=== PATIENT | male | born 1960 | race Caucasian/White ===

== ENCOUNTER 2018-07-12 21:04 | Inpatient (IN) | payer OTHER ==
[2018-07-12] MEDS ORDERED: NS 1,000 ML IV ONE (21:40)
--- NOTE | 2018-07-12 21:41 | EDPHY ---
H & P Stated Complaint: CP TODAY SINCE 1999/INTERMITTENT CP SINCE THU Time Seen by Provider: 07/12/18 21:41 HPI/ROS: HPI CHIEF COMPLAINT: Chest discomfort. HISTORY OF PRESENT ILLNESS: Very pleasant 57-year-old male, he has a history of hypertension, hyperlipidemia, diabetes, obesity however no history of cardiovascular disease presents emergency room with 1 week of intermittent chest discomfort. He states he often has this 3 times a day. Describes a dull ache sensation substernal left chest radiating down the left arm. Upper left neck at times. Worse when he exerts himself. He did work all weekend so we did not, over the weekend however had multiple times weekend. Also complains of shortness of breath with this chest discomfort. He currently has a dull ache left side of his chest. 02/14. Past Medical History: Hypertension, hyperlipidemia, diabetes, obesity Past Surgical History: No recent surgical history Social History: Denies drugs alcohol tobacco. Works at [employer]. Typically works weekends. Family History: Noncontributory ROS REVIEW OF SYSTEMS: 10 Systems were reviewed and negative with the exception of the elements mentioned in the history of present illness. Exam Constitutional nontoxic no acute distress triage nursing summary reviewed, vital signs reviewed, awake/alert. Eyes normal conjunctivae and sclera, EOMI, PERRLA. HENT normal inspection, atraumatic, moist mucus membranes, no epistaxis, neck supple/ no meningismus, no raccoon eyes. Respiratory clear to auscultation bilaterally, normal breath sounds, no respiratory distress, no wheezing. Cardiovascular rate normal, regular rhythm, no murmur, no edema, distal pulses normal. Gastrointestinal soft, non-tender, no rebound, no guarding, normal bowel sounds, no distension, no pulsatile mass. Genitourinary no CVA tenderness. Musculoskeletal no midline vertebral tenderness, full range of motion, no calf swelling, no tenderness of extremities, no meningismus, good pulses, neurovascularly intact. Skin pink, warm, & dry, no rash, skin atraumatic. Neurologic awake, alert and oriented x 3, AAOx3, moves all 4 extremities equally, motor intact, sensory intact, CN II-XII intact, normal cerebellar, normal vision, normal speech. Psychiatric normal mood/affect. Heme/Lymph/Immune no lymphadenopathy. Differential diagnosis includes but is not limited to: ACS, atypical chest pain , pneumothorax, pneumonia, pulmonary embolism, aortic dissection, congestive heart failure, tumor, musculoskeletal pain, esophageal pain, GERD, peptic ulcer disease, pancreatitis Medical Decision Making: Plan for this patient IV establishment with full quality assurance monitor chassis, full-dose aspirin, nitroglycerin dose to see if this gives him chest pain relief. Chest x -ray, EKG, troponin, rule out acute coronary syndrome. Re-evaluation: EKG interpretation by me on record in [employer] system. Impression time of EKG 4, sinus rhythm rate of a [address] elevation. No acute ischemia. Patient was given 3 doses of nitroglycerin. The patient developed worsening chest pain. The patient had a repeat EKG Repeat EKG time 2214 p.m., sinus tach 105, ST elevation noted to [address] elevation FL. ST depression 1 in aVL. Patient is already received full-dose aspirin. Given the patient has a acute change in his EKG with ST elevation in inferior leads a cardiac alert was called. Plan will be for consultation with Cardiology most likely cardiac rn cardiac cath. ED x-ray chest negative for acute cardiopulmonary disease. 2237: Patient re-evaluated this time chest pain is less. He had a repeat EKG this is his 3rd EKG time of 30 EKG 2234, sinus rhythm rate of 95, still ST elevation inferior leads to 3 AVF concerning for acute FL. Critical Care: Total Critical Care Time Spent Managing this Patient: 65 Minutes. This time was spent Exclusively with this patient. This Care was exclusive of procedures. The Organ System/life at risk was ST elevation FL This Patient was in Critical Condition because STEMI Dr. Dawson to take patient to rn cardiac cath. Source: Patient - Personal History Current Tetanus Diphtheria and Acellular Pertussis (TDAP): No - Medical/Surgical History Hx Asthma: No Hx Chronic Respiratory Disease: No Hx Diabetes: Yes Hx Cardiac Disease: No Hx Renal Disease: No Hx Cirrhosis: No Hx Alcoholism: No Hx HIV/AIDS: No Hx Splenectomy or Spleen Trauma: No Other PMH: DM II (METFORMIN,GLYPIZIDE), HTN, SPINAL STENOSIS (CANE) - Social History Smoking Status: Never smoked Constitutional: Initial Vital Signs Temperature (C) 36.4 C 07/12/18 21:10 Heart Rate 100 07/12/18 21:10 Respiratory Rate 16 07/12/18 21:10 Blood Pressure 162/99 H 07/12/18 21:10 O2 Sat (%) 96 07/12/18 21:10 O2 Delivery Mode Room Air Allergies/Adverse Reactions: tetanus and diphtheria toxoids Allergy (Verified 07/12/18 21:13) Home Medications: Medication Instructions Recorded Blood Pressure Pill 07/12/18 Cholesterol Pill 07/12/18 Metformin HCl 07/12/18 glipiZIDE 07/12/18 Medical Decision Making - Diagnostics Imaging Results: Imaging Impressions Chest X-Ray 07/12/18 21:41 Impression: No definite or significant localizing abnormalities. - Data Points Laboratory Results: Laboratory Results 07/12/18 21:25 07/12/18 21:25 07/12/18 07/12/18 07/12/18 21:51 21:25 21:25 WBC RBC Hgb Hct MCV MCH MCHC RDW Plt Count MPV Neut % (Auto) Lymph % (Auto) [place] % (Auto) Eos % (Auto) Baso % (Auto) Nucleat RBC Rel Count Absolute Neuts (auto) Absolute Lymphs (auto) Absolute Monos (auto) Absolute Eos (auto) Absolute Basos (auto) Absolute Nucleated RBC Immature Gran % Immature Gran # PT 13.4 SEC SEC (12.0-15.0) INR 1.00 (0.83-1.16) APTT 28.6 SEC SEC (23.0-38.0) D-Dimer 0.76 ug/mLFEU H ug/mLFEU (0.00-0.50) Sodium 135 mEq/L mEq/L (135-145) Potassium 4.2 mEq/L mEq/L (3.3-5.0) Chloride 101 mEq/L mEq/L (97-110) Carbon Dioxide 21 mEq/l L mEq/l (22-31) Anion Gap 13 mEq/L mEq/L (6-14) BUN 15 mg/dL mg/dL (7-23) Creatinine 0.7 mg/dL mg/dL (0.7-1.3) Estimated GFR > 60 Glucose 377 mg/dL H mg/dL (70-100) Calcium 9.8 mg/dL mg/dL (8.5-10.4) Magnesium 1.6 mg/dL mg/dL (1.6-2.3) Total Bilirubin 0.6 mg/dL mg/dL (0.1-1.4) Conjugated Bilirubin 0.2 mg/dL mg/dL (0.0-0.5) Unconjugated Bilirubin 0.4 mg/dL mg/dL (0.0-1.1) AST 19 IU/L IU/L (17-59) ALT 18 IU/L L IU/L (21-72) Alkaline Phosphatase 105 IU/L IU/L (38-126) POC Troponin I 0.00 ng/mL ng/mL (0.00-0.08) NT-Pro-B Natriuret Pep 135 pg/mL H pg/mL (0-125) Total Protein 7.4 g/dL g/dL (6.3-8.2) Albumin 4.2 g/dL g/dL (3.5-5.0) 07/12/18 21:25 WBC 9.15 10^3/uL 10^3/uL (3.80-9.50) RBC 4.78 10^6/uL 10^6/uL (4.40-6.38) Hgb 14.5 g/dL g/dL (13.7-17.5) Hct 41.0 % % (40.0-51.0) MCV 85.8 fL fL (81.5-99.8) MCH 30.3 pg pg (27.9-34.1) MCHC 35.4 g/dL g/dL (32.4-36.7) RDW 12.4 % % (11.5-15.2) Plt Count 349 10^3/uL 10^3/uL (150-400) MPV 9.6 fL fL (8.7-11.7) Neut % (Auto) 63.6 % % (39.3-74.2) Lymph % (Auto) 24.2 % % (15.0-45.0) [place] % (Auto) 8.6 % % (4.5-13.0) Eos % (Auto) 2.4 % % (0.6-7.6) Baso % (Auto) 1.0 % % (0.3-1.7) Nucleat RBC Rel Count 0.0 % % (0.0-0.2) Absolute Neuts (auto) 5.82 10^3/uL 10^3/uL (1.70-6.50) Absolute Lymphs (auto) 2.21 10^3/uL 10^3/uL (1.00-3.00) Absolute Monos (auto) 0.79 10^3/uL 10^3/uL (0.30-0.80) Absolute Eos (auto) 0.22 10^3/uL 10^3/uL (0.03-0.40) Absolute Basos (auto) 0.09 10^3/uL 10^3/uL (0.02-0.10) Absolute Nucleated RBC 0.00 10^3/uL 10^3/uL (0-0.01) Immature Gran % 0.2 % % (0.0-1.1) Immature Gran # 0.02 10^3/uL 10^3/uL (0.00-0.10) PT INR APTT D-Dimer Sodium Potassium Chloride Carbon Dioxide Anion Gap BUN Creatinine Estimated GFR Glucose Calcium Magnesium Total Bilirubin Conjugated Bilirubin Unconjugated Bilirubin AST ALT Alkaline Phosphatase POC Troponin I NT-Pro-B Natriuret Pep Total Protein Albumin Medications Given: Morphine Sulfate (Morphine) 2 mg IVP Q1HR PRN PRN Reason: Pain, Severe Unable to Take PO Stop: 07/23/18 00:11 Last Admin: 07/13/18 02:52 Dose: 2 mg Discontinued Medications Aspirin (Aspirin) 324 mg PO EDNOW ONE Stop: 07/12/18 21:48 Last Admin: 07/12/18 21:50 Dose: 324 mg Clopidogrel Bisulfate (Plavix) 600 mg PO ONCE ONE Stop: 07/13/18 00:13 Last Admin: 07/13/18 00:57 Dose: Not Given Sodium Chloride (Ns) 1,000 mls @ 0 mls/hr IV EDNOW ONE; Wide Open PRN Reason: Protocol Stop: 07/12/18 21:41 Last Admin: 07/12/18 21:50 Dose: 1,000 mls Nitroglycerin (Nitrostat) 0.4 mg SL Q5M PRN PRN Reason: Chest Pain Last Admin: 07/12/18 22:12 Dose: 0.4 mg Point of Care Test Results: Chemistry 07/12/18 21:51 POC Troponin I 0.00 ng/mL ng/mL (0.00-0.08) Departure - Departure Disposition: [facility] Inpatient Acute Clinical Impression: Chest pain Qualifiers: Chest pain type: unspecified Qualified Code(s): R07.9 - Chest pain, unspecified STEMI (ST elevation myocardial infarction) Qualifiers: Involved coronary artery: unspecified coronary artery Qualified Code(s): I21.3 - ST elevation (STEMI) myocardial infarction of unspecified site Condition: Critical
[2018-07-12] MEDS ORDERED: ASPIRIN 81 MG CHEWABLE TAB PO ONE (21:47)
[2018-07-12 21:48] LABS: PLATELET COUNT 349 10^3/uL (150-400)
[2018-07-12] MEDS: NITROGLYCERIN 0.4 MG BTL SL PRN ×3 (21:52→22:12)
[2018-07-12 22:03] LABS: PROTIME(PATIENT) 13.4 SEC (12.0-15.0)
[2018-07-12] MEDS ORDERED: LIDOCAINE 1% 300 MG/30 ML SDV ONE (22:43)
[2018-07-12] MEDS ORDERED: MIDAZOLAM 2 MG/2 ML VIAL ONE (22:44)
[2018-07-12] MEDS ORDERED: fentaNYL 100 MCG/2 ML INJ ONE (22:44)
[2018-07-12] MEDS ORDERED: IOPAMIDOL (ISOVUE-370) 150 ML BTL IV ONE ×2 (22:44→23:35)
[2018-07-12] MEDS ORDERED: BIVALIRUDIN 250 MG/5 ML VIAL IV ONE (22:45)
--- NOTE | 2018-07-12 22:48 | CPEKG ---
Test Reason : OPEN Blood Pressure : / mmHG Vent. Rate : 097 BPM Atrial Rate : 097 BPM P-R Int : 169 ms QRS Dur : 096 ms QT Int : 351 ms P-R-T Axes : 039 024 039 degrees QTc Int : 446 ms Sinus rhythm Confirmed by Guillermo Mike ([id number]) on 07/12/2018 10:48:19 PM Referred By: Confirmed By:Guillermo Mike
[2018-07-12] MEDS ORDERED: ADENOSINE 6 MG/2 ML VIAL ONE ×2 (23:42→23:43)
[2018-07-13] MEDS ORDERED: CLOPIDOGREL BISULFATE 75 MG TAB ONE (00:06)
--- NOTE | 2018-07-13 00:07 | GHP ---
DATE OF ADMISSION: 07/12/2018 CHIEF COMPLAINT: We have been asked by Dr. Aguilar to evaluate the patient with a chief complaint of chest pain. HISTORY OF PRESENT ILLNESS: The patient is a 57-year-old gentleman with risk factors including age, hypertension, hyperlipidemia, and diabetes mellitus, who presents with a chief complaint of chest pain. The patient was in his usual state of health until approximately 1 week prior to admission when he began to experience intermittent episodes of chest pain. The chest pain was described as an ache in the center of his chest extending into his left arm and left neck. The chest discomfort would come on, last approximately 15 minutes, and then resolve. This last weekend on Thursday, the patient had a particularly severe episode, and he was thinking about coming to the emergency department for further evaluation; however, it resolved and he did not come in. On the evening of admission, the patient had another severe episode of the chest discomfort, prompting him to seek further evaluation. In the emergency department, he had an EKG performed demonstrating ST-segment elevation in the inferior leads. His initial troponin was within normal limits. We are consulted to help in the further management this patient. PAST MEDICAL HISTORY: 1. Hypertension. 2. Hyperlipidemia. 3. Diabetes. 4. Obesity. 5. Spinal stenosis. MEDICATIONS: Please see medicine reconciliation form. ALLERGIES: Tetanus toxoid. SOCIAL HISTORY: The patient works at [employer]. He does not smoke. He denies problems with alcohol. FAMILY HISTORY: Noncontributory. REVIEW OF SYSTEMS: 10-point review of systems is negative except as noted in HPI. PHYSICAL EXAMINATION: GENERAL: The patient is resting in bed. He appears to be in mild distress. VITALS: Temperature is afebrile. Pulse is 107, blood pressure 148/95, respiratory rate 16, SaO2 96% on 2 L nasal cannula. HEENT: Normocephalic, atraumatic. Extraocular muscles intact. NECK: No JVD. LUNGS: Clear to auscultation. CARDIOVASCULAR: Regular rate and rhythm. S1, S2. No murmurs, rubs, or gallops. ABDOMEN: Soft, nontender. Normoactive bowel sounds. EXTREMITIES: No clubbing, cyanosis, or edema. NEURO: Patient is awake, alert, and oriented x3. LABORATORY: White blood cell count 9.15, hemoglobin 14.5, hematocrit 41.0, platelet count 349. INR 1.0. Sodium 135, potassium 4.2, chloride 101, CO2 21, BUN 15, creatinine 0.7. ALT is low at 18. Glucose is elevated at 377. Point of care troponin within normal limits. DIAGNOSTIC DATA: EKG demonstrates sinus rhythm with inferior ST-segment elevation. ADDENDUM: Patient initially presented to the emergency department as an acute coronary syndrome. His initial EKG demonstrated no acute ST-segment elevation. His initial point of care troponin was within normal limits. Patient developed progressive chest pain while in the emergency department. He had a 2nd EKG performed at 2212. The 2nd EKG was notable for inferior ST-segment elevation myocardial infarction and cardiac alert activated. ASSESSMENT/PLAN: Patient is a 57-year-old gentleman with multiple cardiac risk factors, who presents with acute inferior ST-segment elevation myocardial infarction. Reviewed risks and benefits of cardiac catheterization with the patient. We will arrange to have this performed emergently. /[id number]/MODL and [id number]/MODL [facility]
[2018-07-13] MEDS ORDERED: NITROGLYCERIN 0.4 MG BTL SL PRN (00:12)
[2018-07-13] MEDS ORDERED: ATROPINE SULFATE 1 MG/10 ML SYR IVP PRN (00:12)
[2018-07-13] MEDS ORDERED: CLOPIDOGREL BISULFATE 75 MG TAB PO ONE (00:12)
[2018-07-13] MEDS ORDERED: TEMAZEPAM 15 MG CAP PO PRN (00:12)
[2018-07-13] MEDS ORDERED: ONDANSETRON 4 MG/2 ML VIAL IVP PRN (00:12)
[2018-07-13] MEDS ORDERED: LORazepam 2 MG/ML INJ IVP PRN (00:12)
[2018-07-13] MEDS ORDERED: D50W 25 GM/50 ML SYR IVP PRN (00:16)
[2018-07-13 05:32] LABS: PLATELET COUNT 293 10^3/uL (150-400)
--- NOTE | 2018-07-13 05:48 | CPEKG ---
Test Reason : OPEN Blood Pressure : / mmHG Vent. Rate : 105 BPM Atrial Rate : 106 BPM P-R Int : 169 ms QRS Dur : 096 ms QT Int : 334 ms P-R-T Axes : 046 054 037 degrees QTc Int : 442 ms Sinus tachycardia Inferior infarct, acute (RCA) Lateral leads are also involved Probable RV involvement, suggest recording right precordial leads Confirmed by Sky Aguilar ([id number]) on 07/13/2018 5:47:40 AM Referred By: Confirmed By:Sky Aguilar
--- NOTE | 2018-07-13 05:48 | CPEKG ---
Test Reason : OPEN Blood Pressure : / mmHG Vent. Rate : 095 BPM Atrial Rate : 094 BPM P-R Int : 171 ms QRS Dur : 093 ms QT Int : 346 ms P-R-T Axes : 051 044 025 degrees QTc Int : [address] elevation, consider inferior injury Confirmed by Sky Aguilar ([id number]) on 07/13/2018 5:47:40 AM Referred By: Confirmed By:Sky Aguilar
[2018-07-13] MEDS: INSULIN REGULAR HUMAN 100 UNIT/ML UNIT SC SCH ×4 (07:52→21:11)
--- NOTE | 2018-07-13 08:14 | CPIP ---
DATE OF PROCEDURE: 07/12/2018 PROCEDURE: 1. Coronary angiography. 2. Left ventriculography. 3. Stenting of right coronary artery with Synergy drug-eluting stent. INDICATION: Acute inferior ST-segment elevation myocardial infarction. ACCESS: Patient was prepped and draped in sterile fashion. 1% lidocaine was used to anesthetize the right inguinal region. A 6-Thai introducer sheath was placed selectively into the right common fe moral artery via modified Seldinger technique. CORONARY ANGIOGRAPHY: A 6-Thai JL4 was advanced to the left main coronary artery and images obtain ed. The left main coronary artery bifurcated into an LAD and circumflex coronary arteries. The left main coronary artery appeared normal. The left anterior descending coronary artery had mild diffuse disease throughout. In the mid vessel, there was a long segmental 50% stenosis present. The first diagonal artery had a segmental 80% stenosis present. The circumflex coronary artery is a moderate-s ized vessel, but was nondominant. The circumflex coronary artery gave rise to 2 prominent OM branche s. The circumflex coronary artery had mild diffuse disease throughout. The first OM branch, which w as the dominant OM branch had a proximal segmental 40% stenosis present. 6-Thai JR4 was advanced t o the right coronary artery and images obtained. The right coronary artery was dominant. The right coronary artery had mild diffuse disease throughout. In the proximal vessel, there was a segmental 2 5% stenosis present, and in the distal vessel just after the takeoff of the PDA, there was a discrete 90% stenosis present. LEFT VENTRICULOGRAPHY: A 6-Thai pigtail catheter was advanced in the left ventricle and images obt ained. The left ventricle was normal in size and had normal systolic function. The estimated ejecti on fraction was 65%. PERCUTANEOUS CORONARY INTERVENTION OF THE RIGHT CORONARY ARTERY: A 6-Thai JR4 catheter was advance d to the right coronary artery and images obtained. Angiography confirmed the presence of a high-gra de lesion involving the distal right coronary artery. A Luge wire was placed in the distal vessel an d position verified by angiography. A 2.5 x 15 Emerge balloon was used to pre-dilate the lesion, fol lowup angiography demonstrated significant residual stenosis. A 3.0 x 20 Synergy drug-eluting stent was then placed across the lesion and deployed, followup angiography demonstrated TAYLOR-3 flow, no res idual stenosis. COMPLICATIONS: None. CONCLUSIONS: 1. 2-vessel coronary artery disease involving the right coronary artery and left anterior descending coronary artery. 2. Normal left ventricular size and systolic function. 3. Status post successful percutaneous coronary intervention of the right coronary artery using a Jaime powell drug-eluting stent. /[id number]/MODL
--- NOTE | 2018-07-13 08:43 | SOAPPROG ---
PRADIP Progress Note Assessment/Plan: 1. IMI - Pt presented with an ACS. Initial EKG demonstrated no acute ST or T changes. While in the ER he developed progressive symptoms and had a repeat EKG performed demonstrating inferior ST segment elevation. He was taken to the cardiac catheterization laboratory were he was found to have a 90 to 95% stenosis of her RCA. Pt was treated with PCI using Synergy EDMAR. LVEF wnl. Pt has had low level gradually improving chest pain post procedure. No significant arrhythmias on telemetry monitoring. No CHF. --> Continue asa, plavix, coreg, lisinopril, and lipitor --> Cycle cardiac biomarkers post procedure given low level on going chest pain --> Will obtain stress test as out patient to evaluate LAD and diagonal disease. 2. HTN - adequately controlled --> Continue coreg and lisinopril 3. Hyperlipidemia - LDL = 75 --> Lipitor 40 mg daily 4. DM - Pt has a history of DM. His glucose was not well controlled on admission. Pt started on insulin SS. Will consult Dr. Sam to help with management Subjective: Pt presented with with an ACS transitioning to an inferior STEMI. He was treated with PCI of RCA. Pt has noted low level gradually improving chest pain post procedure ( EKG with resolutions of inferior ST elevation) No orthopnea or PND Objective: Vital Signs Temp Pulse Resp BP Pulse Ox 36.4 C 76 16 118/64 93 07/13/18 07:52 07/13/18 07:52 07/13/18 07:52 07/13/18 07:52 07/13/18 07:52 Laboratory Results 07/13/18 05:03 07/13/18 05:00 07/12/18 07/13/18 07/14/18 05:59 05:59 05:59 Intake Total 500 Output Total 700 Balance -200 PT 13.4 SEC (12.0-15.0) 07/12/18 21:25 INR 1.00 (0.83-1.16) 07/12/18 21:25 Physical Exam - Physical Exam General Appearance: alert, no apparent distress Respiratory: lungs clear Cardiac/Chest: regular rate, rhythm Abdomen: non-tender, soft Skin: normal color Extremities: other (No hematoma. No echymosis. 2+ DP and PT on R), No pedal edema Neuro/Psych: alert, oriented x 3 ICD10 Worksheet Patient Problems: Problems Problem Status Onset Chest pain Acute STEMI (ST elevation myocardial infarction) Acute
[2018-07-13] MEDS: CARVEDILOL 3.125 MG TAB PO SCH ×2 (08:55→18:24)
[2018-07-13] MEDS: ASPIRIN EC 325 MG TAB PO SCH (08:55)
[2018-07-13] MEDS: ATORVASTATIN CALCIUM 40 MG TAB PO SCH (08:55)
[2018-07-13] MEDS: CLOPIDOGREL BISULFATE 75 MG TAB PO SCH (08:55)
[2018-07-13] MEDS: LISINOPRIL 5 MG TAB PO SCH (08:55)
--- NOTE | 2018-07-13 09:20 | ASMTCMCOM ---
CM Note CM Note Notes: 57yo male admitted for CP, STEMI. He has a Hx of HTN, HLD, DM-2, Obesity, Spinal stenosis. He went to the photo lab specialist found to have stenosis of his RCA-treated with PCI. May not have discharge needs. Date Signed: 07/13/2018 09:19 AM Electronically Signed By:Kerry Hayes LCSW
[2018-07-13 09:27] LABS: CREATINE KINASE 737 IU/L (0-224)
--- NOTE | 2018-07-13 09:27 | PDMN ---
Medical Necessity Medical necessity: MCG: M230 KS: 2 days: acute inferior ST-segment elevation KS - OP: angio, LVR, stenting of RCA with Synergy EDMAR
--- NOTE | 2018-07-13 11:50 | PDHOSCONS ---
History and Physical - Chief Complaint Hyperglycemia - History of Present Illness Antwan Gonzales is a 57 yo M with a PMHx of T2DM, HTN, HLD, who presented to [facility] for chest pain, STEMI, s/p PCI to LAD and RCA. Hospitalist consulted for diabetes management. Pt reports he was diagnosed with T2DM in 2004. He states when he checks his blood sugar at home it is usually in the 300's. He takes Metformin, Glipizide, and one other oral diabetic medication (recently prescribed by PCP). He reports most recent A1c was 11. He states he has had > 50 lb weight loss in past year with polyphagia, polydipsia, and polyuria. History Information - Allergies/Home Medication List Allergies/Adverse Reactions: tetanus and diphtheria toxoids Allergy (Verified 07/12/18 21:13) Home Medications: Atorvastatin Calcium [Lipitor 10 mg (*)] 10 mg PO DAILY18 07/12/18 [Last Taken 07/12/18] Lisinopril [Zestril 20 mg (*)] 20 mg PO DAILY18 07/12/18 [Last Taken 07/12/18] glipiZIDE [Glucotrol] 10 mg PO BID 07/12/18 [Last Taken 07/11/18] Acetaminophen [Tylenol 325mg (*)] 325 mg PO DAILY PRN 07/13/18 [Last Taken Unknown] Aleve Back And Muscle 1 each PO DAILY PRN 07/13/18 [Last Taken Unknown] Methocarbamol [Robaxin 500 mg (*)] 500 mg PO Q6HRS PRN 07/13/18 [Last Taken 01/22 21:00] Naproxen Sodium [Aleve 220 MG (*)] 660 mg PO DAILY PRN 07/13/18 [Last Taken Unknown] Tamsulosin HCl [Flomax 0.4 MG (*)] 0.8 mg PO DAILY18 07/13/18 [Last Taken ] I have personally reviewed and updated: family history, medical history, social history, surgical history - Past Medical History coronary artery disease, diabetes type 2, hypertension, hyperlipidemia - Surgical History Reports: no pertinent surgical hx - Family History Positive for: diabetes type II - Social History Smoking Status: Never smoked Review of Systems Review of Systems: ROS: 10pt was reviewed & negative except for what was stated in HPI & below Physical Exam Physical Exam: Temp Pulse Resp BP Pulse Ox 36.7 C 82 18 124/80 H 95 07/13/18 11:30 07/13/18 11:30 07/13/18 11:30 07/13/18 11:30 07/13/18 11:30 O2 (L/minute) 2 Constitutional: no apparent distress Eyes: PERRL Ears, Nose, Mouth, Throat: moist mucous membranes Cardiovascular: regular rate and rhythym Respiratory: no respiratory distress Gastrointestinal: soft, non-tender abdomen Genitourinary: No tovar in urethra Skin: warm Musculoskeletal: full muscle strength Neurologic: AAOx3 Psychiatric: interacting appropriately Lab Data & Imaging Review 07/13/18 05:03 07/13/18 05:00 WBC 11.55 10^3/uL (3.80-9.50) H 07/13/18 05:03 RBC 4.29 10^6/uL (4.40-6.38) L 07/13/18 05:03 Hgb 13.0 g/dL (13.7-17.5) L 07/13/18 05:03 Hct 37.7 % (40.0-51.0) L 07/13/18 05:03 MCV 87.9 fL (81.5-99.8) 07/13/18 05:03 MCH 30.3 pg (27.9-34.1) 07/13/18 05:03 MCHC 34.5 g/dL (32.4-36.7) 07/13/18 05:03 RDW 12.6 % (11.5-15.2) 07/13/18 05:03 Plt Count 293 10^3/uL (150-400) 07/13/18 05:03 MPV 9.7 fL (8.7-11.7) 07/13/18 05:03 Neut % (Auto) 70.2 % (39.3-74.2) 07/13/18 05:03 Lymph % (Auto) 17.6 % (15.0-45.0) 07/13/18 05:03 Grainger % (Auto) 9.3 % (4.5-13.0) 07/13/18 05:03 Eos % (Auto) 2.0 % (0.6-7.6) 07/13/18 05:03 Baso % (Auto) 0.6 % (0.3-1.7) 07/13/18 05:03 Nucleat RBC Rel Count 0.0 % (0.0-0.2) 07/13/18 05:03 Absolute Neuts (auto) 8.12 10^3/uL (1.70-6.50) H 07/13/18 05:03 Absolute Lymphs (auto) 2.03 10^3/uL (1.00-3.00) 07/13/18 05:03 Absolute Monos (auto) 1.07 10^3/uL (0.30-0.80) H 07/13/18 05:03 Absolute Eos (auto) 0.23 10^3/uL (0.03-0.40) 07/13/18 05:03 Absolute Basos (auto) 0.07 10^3/uL (0.02-0.10) 07/13/18 05:03 Absolute Nucleated RBC 0.00 10^3/uL (0-0.01) 07/13/18 05:03 Immature Gran % 0.3 % (0.0-1.1) 07/13/18 05:03 Immature Gran # 0.03 10^3/uL (0.00-0.10) 07/13/18 05:03 PT 13.4 SEC (12.0-15.0) 07/12/18 21:25 INR 1.00 (0.83-1.16) 07/12/18 21:25 APTT 28.6 SEC (23.0-38.0) 07/12/18 21:25 D-Dimer 0.76 ug/mLFEU (0.00-0.50) H 07/12/18 21:25 Sodium 135 mEq/L (135-145) 07/13/18 05:00 Potassium 4.0 mEq/L (3.3-5.0) 07/13/18 05:00 Chloride 106 mEq/L (97-110) 07/13/18 05:00 Carbon Dioxide 22 mEq/l (22-31) 07/13/18 05:00 Anion Gap 7 mEq/L (6-14) 07/13/18 05:00 BUN 11 mg/dL (7-23) 07/13/18 05:00 Creatinine 0.5 mg/dL (0.7-1.3) L 07/13/18 05:00 Estimated GFR > 60 07/13/18 05:00 Glucose 270 mg/dL (70-100) H 07/13/18 05:00 POC Glucose 228 mg/dL (70-100) H 07/13/18 07:38 Calcium 8.8 mg/dL (8.5-10.4) 07/13/18 05:00 Magnesium 1.6 mg/dL (1.6-2.3) 07/12/18 21:25 Total Bilirubin 0.6 mg/dL (0.1-1.4) 07/13/18 05:00 Conjugated Bilirubin 0.1 mg/dL (0.0-0.5) 07/13/18 05:00 Unconjugated Bilirubin 0.5 mg/dL (0.0-1.1) 07/13/18 05:00 AST 93 IU/L (17-59) H 07/13/18 05:00 ALT 32 IU/L (21-72) 07/13/18 05:00 Alkaline Phosphatase 85 IU/L (38-126) 07/13/18 05:00 Creatine Kinase 737 IU/L (0-224) H 07/13/18 09:00 CK-MB (CK-2) Fraction 20.00 ng/mL (0.00-4.55) H 07/13/18 09:00 CK-MB (CK-2) % 2.7 % (0.0-4.0) 07/13/18 09:00 Creatine Kinase Interp NEGATIVE (NEGATIVE) 07/13/18 09:00 POC Troponin I 0.00 ng/mL (0.00-0.08) 07/12/18 21:51 Troponin I 23.400 ng/mL (0.000-0.034) H 07/13/18 09:00 NT-Pro-B Natriuret Pep 135 pg/mL (0-125) H 07/12/18 21:25 Total Protein 6.5 g/dL (6.3-8.2) 07/13/18 05:00 Albumin 3.5 g/dL (3.5-5.0) 07/13/18 05:00 Triglycerides 121 mg/dL (40-150) 07/13/18 05:00 Cholesterol 130 mg/dL (140-220) L 07/13/18 05:00 Cholesterol Risk Factr 0.8 (0.2-1.0) 07/13/18 05:00 LDL Cholesterol, Calc 75 mg/dL (80-100) L 07/13/18 05:00 LDL Risk Factor 0.8 (0.2-1.0) 07/13/18 05:00 VLDL Cholesterol 24 mg/dL (8-25) 07/13/18 05:00 Non-HDL Cholesterol 99 mg/dL (90-129) 07/13/18 05:00 HDL Cholesterol 31 mg/dL (40-65) L 07/13/18 05:00 LDL/HDL Ratio 2.41 RATIO (1.00-3.64) 07/13/18 05:00 Cholesterol/HDL Ratio 4.19 RATIO (1.00-4.97) 07/13/18 05:00 Assessment & Plan Assessment: Uncontrolled T2DM - Patient's BG in 200's since admission - Reports most recent A1c 11, managed by PCP - On Metformin 2,000 mg qd, Glipizide 10 mg BID, and other new oral medication - Placed on SSI while in hospital - Patient resistant to being place on insulin due to family hx of insulin related deaths - Continue SSI for now, hold Metformin while IP - Patient's daughter is to bring in new oral antihyperglycemic - If patient agrees, would start long acting insulin, Lantus 0.2 units/kg, ~18 units qd - Plan would be to increase by 2-4 units periodically (approx q3 days) if FBG is >130, this should be done as OP and managed by PCP - In the meantime would recommend restarting home Glipizide 10 mg BID - Continue to monitor BG, will order A1c - Discussed risks of chronic uncontrolled DM, including renal failure, blindness , neuropathy, CAD - Patient to followup with PCP for further management of DM - Continue ASA, Statin as below Inferior ST segment elevation. -S/p [facility] where he was found to have a 90 to 95% stenosis of her RCA. - Pt was treated with PCI using Synergy EDMAR. LVEF - Continue asa, plavix, coreg, lisinopril, and lipitor - Plan per cardiology to obtain stress test as out patient to evaluate LAD and diagonal disease. HTN - Well controlled - Continue coreg and lisinopril Hyperlipidemia - Continue Lipitor 40 mg daily Thank you for the consult. Please contact with any questions or concerns. We will continue to follow patient throughout this hospitalization.
[2018-07-13] MEDS ORDERED: KETOROLAC 15 MG/1 ML SDV IVP ONE (12:30)
[2018-07-13 16:00] LABS: CREATINE KINASE 546 IU/L (0-224)
[2018-07-13] MEDS: glipiZIDE 10 MG TAB PO SCH (21:11)
[2018-07-13] MEDS ORDERED: ACETAMINOPHEN 325 MG TAB PO PRN (21:30)
[2018-07-14 07:48] VITALS: BP 134/82
[2018-07-14] MEDS: CLOPIDOGREL BISULFATE 75 MG TAB PO SCH (08:15)
[2018-07-14] MEDS: CARVEDILOL 3.125 MG TAB PO SCH (08:15)
[2018-07-14] MEDS: LISINOPRIL 5 MG TAB PO SCH (08:15)
[2018-07-14] MEDS: INSULIN REGULAR HUMAN 100 UNIT/ML UNIT SC SCH (08:15)
[2018-07-14] MEDS: glipiZIDE 10 MG TAB PO SCH (08:15)
[2018-07-14] MEDS: ATORVASTATIN CALCIUM 40 MG TAB PO SCH (08:15)
[2018-07-14] MEDS: ASPIRIN EC 325 MG TAB PO SCH (08:16)
[2018-07-14] MEDS ORDERED: CARVEDILOL 3.125 MG TAB PO ONE (09:44)
--- NOTE | 2018-07-14 10:23 | ASMTLACE ---
LACE Length of stay for Answers: 1 day current admission Acuity / Level of Answers: Yes Care: Did the patient have an inpatient admission? Comorbidities - select Answers: Diabetes (uncontrolled or all that apply controlled) Previous myocardial infarction Other Notes: HTN; HLD; Spinal stenos is # of Emergency department Answers: 1-2 visits in the last 6 months Score: 8 Date Signed: 07/14/2018 10:22 AM Electronically Signed By:Teri Baum RN
--- NOTE | 2018-07-14 10:26 | ASDISCHSUM ---
Discharge Information Plan Status:Home with No Needs Medically Cleared to Leave:07/13/2018 Discharge Date:07/13/2018 CM D/C Disposition:Home, Routine, Self-Care ADT D/C Disposition:Home, Routine, Self-Care Projected Discharge Date:07/13/2018 Transportation at D/C: Discharge Delay Reason: Follow-Up Date:07/13/2018 Discharge Slot: Final Diagnosis:CP, STEMI Placement Information Patient Contact Information Contact Name:YVES Relationship: Address:[address] Work Phone: City:[place] Alternate Phone: State/Zip Code:[place] [address] Email: Financial Information Financial Class:HMO and PPO Plans Primary Plan Desc:[facility] Primary Plan Number:[id number] Secondary Plan Desc: Secondary Plan Number: Assessment Information LACE LACE Length of stay for Answers: 1 day current admission Acuity / Level of Answers: Yes Care: Did the patient have an inpatient admission? Comorbidities - select Answers: Diabetes (uncontrolled or all that apply controlled) Previous myocardial infarction Other Notes: HTN; HLD; Spinal stenos is # of Emergency department Answers: 1-2 visits in the last 6 months Score: 8 Date Signed: 07/14/2018 10:22 AM Electronically Signed By:Teri Baum RN [facility] CM Progress Note CM Note CM Note Notes: 57yo male admitted for CP, STEMI. He has a Hx of HTN, HLD, DM-2, Obesity, Spinal stenosis. He went to the cardiac cath lab technologist found to have stenosis of his RCA-treated with PCI. May not have discharge needs. Date Signed: 07/13/2018 09:19 AM Electronically Signed By:Kerry Hayes LCSW Case Management Discharge Plan Note Case Management Discharge Discharge Order Complete? Answers: Yes Patient to Obtain Answers: via Family Medications Discharge Comments Notes: 07/14/2018 Case Management Note Pt to discharge home with family support and follow up as directed. Date Signed: 07/14/2018 10:25 AM Electronically Signed By:Teri Baum RN Intervention Information
--- NOTE | 2018-07-14 11:37 | HOSPPROG ---
Hospitalist Progress Note Assessment/Plan: Uncontrolled T2DM - Patient's BG in 200's since admission - Reports most recent A1c 11, managed by PCP, repeat A1c 12.9 - On Metformin 2,000 mg qd, Glipizide 10 mg BID, and other new oral medication - Placed on SSI while in hospital - Patient resistant to being place on insulin due to family hx of insulin related deaths - Continue SSI for now, hold Metformin while IP - Patient would like to defer initiation of long acting insulin, (I recommend Lantus 0.2 units/kg, ~18 units qd as initial dose), he would like to f/u with PCP to discuss this further - In the meantime would recommend restarting home Glipizide 10 mg BID while IP, restart Metformin 1000 mg BID upon discharge - Continue to monitor BG - Discussed risks of chronic uncontrolled DM, including renal failure, blindness , neuropathy, CAD - Patient to followup with PCP for further management of DM - Continue ASA, Statin as below Inferior ST segment elevation. -S/p [facility] where he was found to have a 90 to 95% stenosis of her RCA. - Pt was treated with PCI using Synergy EDMAR. LVEF - Continue asa, plavix, coreg, lisinopril, and lipitor - Plan per cardiology to obtain stress test as out patient to evaluate LAD and diagonal disease. HTN - Well controlled - Continue coreg and lisinopril Hyperlipidemia - Continue Lipitor 40 mg daily Subjective: Patient reports no complaints this AM Objective: Vital Signs Temp Pulse Resp BP Pulse Ox 36.5 C 92 14 134/82 H 93 07/14/18 07:43 07/14/18 07:43 07/14/18 07:43 07/14/18 07:43 07/14/18 07:43 Laboratory Results 07/13/18 05:03 07/13/18 05:00 07/13/18 07/14/18 07/15/18 05:59 05:59 05:59 Intake Total 500 870 Output Total 700 Balance -200 870 PT 13.4 SEC (12.0-15.0) 07/12/18 21:25 INR 1.00 (0.83-1.16) 07/12/18 21:25 - Physical Exam Constitutional: no apparent distress Eyes: PERRL Ears, Nose, Mouth, Throat: moist mucous membranes Cardiovascular: No edema Respiratory: no respiratory distress Gastrointestinal: No distension Genitourinary: No tovar in urethra Skin: normal color Neurologic: AAOx3 Psychiatric: interacting appropriately ICD10 Worksheet Patient Problems: Problems Problem Status Onset Chest pain Acute STEMI (ST elevation myocardial infarction) Acute
--- NOTE | 2018-07-14 13:23 | GDS ---
ADMISSION DIAGNOSES: 1. Chest pain. 2. ST elevated myocardial infarction. 3. Hypertension. 4. Hyperlipidemia. 5. Diabetes. 6. Obesity. 7. Spinal stenosis. DISCHARGE DIAGNOSES: 1. Coronary artery disease. s/p SC 2. Status post percutaneous coronary intervention of right coronary artery using a Synergy 3.0 x 20 drug-eluting stent. 3. Hypertension. 4. Hyperlipidemia. 5. Diabetes. 6. Obesity. 7. Spinal stenosis. CONSULTATIONS: Dr. Sam of hospitalist services. PROCEDURES PERFORMED DURING HOSPITALIZATION: 1. Electrocardiogram. 2. Chest x-ray. 3. Diagnostic coronary angiogram. 4. Percutaneous coronary intervention of right coronary artery with drug- eluting stent implantation 3.0 x 20 Synergy drug-eluting stent. BRIEF HISTORY: Please see H and P. Briefly, the patient is a 57-year-old male with significant past history of hypertension, hyperlipidemia, diabetes, and obesity. He presented to the emergency department on July 12 at approximately 9:15 p.m. with report of ongoing episodes of chest pressure on and off with the week with worsening symptoms during the day. Initial electrocardiogram done showed sinus rhythm with no ST or T-wave abnormalities. Patient did report worsening symptoms, approximately around 06/20, in which he was noted to have ST elevation in inferior leads. A cardiac alert was called. The patient was taken immediately to the cardiac catheterization lab by Dr. Means. There, the patient underwent emergent coronary angiogram, which showed left main was normal, LAD had mild diffuse disease out, and mid vessel there was a long segment about 50% stenosis. There was also noted a 1st diagonal with a segmental branch of 80% stenosis present. The circumflex artery was moderate size but not dominant, gave rise to 2 OM branches, had mild diffuse disease throughout. The 1st OM had a proximal segment with a 40% stenosis. Next, the right coronary artery was cine'd, which noted mild diffuse disease out. Proximal segment: There was noted a 25% stenosis. In the distal vessel after the takeoff of the PDA, there was a discrete 90% stenosis. At that point , it was decided for the patient to undergo percutaneous coronary intervention, in which Dr. Means successfully opened up the distal RCA with a 3.0 x 20 drug- eluting stent. No apparent complications. Next, the LV-gram was performed showing normal size with normal LV systolic function, no wall motion abnormalities. EF was estimated at 65%. No apparent complications. The patient was taken to the intensive care unit for overnight observation, and then the following day transitioned over to the PCU. Had been noted that his glucose levels had been significantly high, as high as 300. Consultation was called to the hospitalist. Dr. Sam did see the patient. He did have significant discussion with the patient's diabetic regimen management, and with recommendation that the patient be started on insulin therapy, which he refused. The patient with Dr. Sam's recommendation at the time of discharge is for patient to follow up with his primary care provider, Mikie Evans NP, at the [facility], within the next week, for further discussions about his diabetic management. Note also his hemoglobin A1c was drawn on July 13, 2018. Was 12.9. Throughout his hospitalization, he has maintained sinus rhythm with no malignant arrhythmias or pauses. PHYSICAL EXAMINATION: GENERAL APPEARANCE: Medium built, moderately obese male. He is alert and orientated to person, place, time, and situation. Appears to be under no acute distress. CURRENT VITAL SIGNS: Blood pressure of 134/82, heart rate 92, sinus rhythm on the monitor. Respirations are 14. Saturating 93% on room air. Temperature of 36.5 degrees Celsius. HEENT: Head is normocephalic. Lips and tongue are pink and moist with no signs of cyanosis. Conjunctivae pink. NECK: Trachea is midline, +2 carotid pulses bilaterally. No auscultated bruits, no jugular vein distention. RESPIRATORY: Lungs are clear to auscultation. No rhonchi, rales, or wheezes. No accessory muscle use. No intercostal muscle retraction noted. CARDIAC: Regular rate, regular rhythm, S1, S2, no S3, S4, gallops, rubs, or murmurs noted. ABDOMEN: Soft, nontender, bowel sounds x4 quadrants, no organomegaly, no palpable masses. SKIN: [place], warm, dry, no cyanosis, no clubbing, no peripheral edema. Catheter insertion site, right groin site, with no redness, swelling, drainage , ecchymosis, or hematoma. VASCULAR: +2 carotids bilateral, +2 radials bilateral, +1 dorsal pedal and posterior tibial pulses bilateral. LABORATORY STUDIES: On July 13, laboratory studies showed WBC of 11.5, hemoglobin of 13.0, hematocrit of 37.7, platelet count of 293. Sodium 135, potassium 4.0, chloride 106, CO2 22, BUN 11, creatinine 0.5, glucose 270, hemoglobin A1c 12.9, calcium 8.8. Total bilirubin 0.6, AST of 93, ALT of 32, alkaline phosphate 85. Fasting lipid panel noted to be triglycerides of 121, total cholesterol of 130, HDL 31, LDL 75. The patient's initial troponin level in the hospital was 0.0. On the morning of the , troponin level was repeated and was 23.40; in the afternoon repeated again and on a downward decline at 15.0. Expected post SC. STUDIES: Initial electrocardiograms as mentioned above. Percutaneous coronary intervention and left heart catheterization as mentioned above. Chest x-ray done on admission showed no definitive cardiopulmonary process. The electrocardiogram done on July 13 in the a.m. showing sinus rhythm, with nonspecific T-wave abnormalities in inferior leads, no further ST elevation noted. DISCHARGE DISPOSITION: Patient will be discharged home in stable condition. He is under activity restrictions, not lifting more than 10 pounds for the next week and no strenuous activities for the next week. DISCHARGE MEDICATIONS: Please see discharge medication reconciliation sheet. Note, patient has been sent home on: 1. Flomax 0.8 mg p.o. daily. 2. Robaxin 500 mg p.o. q. 6 hours p.r.n. 3. Aleve 660 mg p.o. daily p.r.n. 4. Glucotrol 10 mg p.o. b.i.d. 5. Metformin 1000 mg p.o. b.i.d. which patient has been told not to start until tomorrow (40 hours after contrast). 6. Lisinopril 5 mg p.o. daily. 7. Clopidogrel 75 mg p.o. daily. 8. Carvedilol 6.25 mg p.o. b.i.d. 9. Atorvastatin 40 mg p.o. daily. 10. Aspirin 325 mg p.o. daily. 11. Tylenol 650 mg p.o. q.6 hours p.r.n. 12. Sublingual nitroglycerin 0.4 mg q. 5 minutes p.r.n. chest pain x3. DISCHARGE INSTRUCTIONS: Post percutaneous coronary intervention/SC discharge instructions went over with the patient and his , including activity restrictions, medication compliancy, especially with EDMAR implantation and the importance of dual anti-platelet therapy, monitoring for signs of infection, bleeding precautions, and bathing precautions. The patient has a scheduled appointment to see Dr. Means in our [place] office next week. It has been discussed with Dr. Sam of hospitalist services, with recommendation of patient seeing his primary care provider within the next 7 days to further discuss diabetic management. The patient has been asked to have a basic metabolic panel drawn the day before he sees Dr. Means. He has also been given a lab slip to get a fasting lipid and liver panel done in 8 weeks with the increase of his atorvastatin. Also, Dr. Means would like the patient to undergo MPI stress testing to evaluate his LAD system, which will be set up during his first office visit. At the time of discharge, patient and family verbalized understanding all discharge instructions and had no questions or concerns. TIME SPENT: Total time spent on discharge greater than 30 minutes. Copy requested to: Mikie Evans NP [employer], [place] /[id number]/[email or web address]
[2018-07-14] MEDS ORDERED: CARVEDILOL 6.25 MG TAB PO SCH (18:00)
--- NOTE | 2018-07-14 22:38 | CPEKG ---
Test Reason : OPEN Blood Pressure : / mmHG Vent. Rate : 076 BPM Atrial Rate : 075 BPM P-R Int : 174 ms QRS Dur : 098 ms QT Int : 377 ms P-R-T Axes : 059 032 006 degrees QTc Int : 424 ms Sinus rhythm Inferior injury pattern suggestive of recent inferior infarct Confirmed by Brett Retana ([id number]) on 07/14/2018 10:38:19 PM Referred By: Confirmed By:Brett Retana
--- NOTE | 2018-07-14 22:40 | CPEKG ---
Test Reason : OPEN Blood Pressure : / mmHG Vent. Rate : 083 BPM Atrial Rate : 084 BPM P-R Int : 167 ms QRS Dur : 095 ms QT Int : 365 ms P-R-T Axes : 047 012 015 degrees QTc Int : [address] elevation, inferior leads suggestive of inferior injury pattern Confirmed by Brett Retana ([id number]) on 07/14/2018 10:40:39 PM Referred By: Confirmed By:Brett Retana
== END 2018-07-14 12:05 | disposition home or self-care (01) | DRG 247 ==
LOC: F2N 07-13 00:22 → F2W 07-13 15:14
PROVIDERS: ADMIT Internal Medicine Cardiovascular Disease; ATTEND Internal Medicine Cardiovascular Disease
PROC: 4A023N7 Measurement of Cardiac Sampling and Pressure, Left Heart, Percutaneous Approach (ICD-10-PCS; principal; 2018-07-13)
PROC: B2111ZZ Fluoroscopy of Multiple Coronary Arteries using Low Osmolar Contrast (ICD-10-PCS; principal; 2018-07-13)
PROC: B2151ZZ Fluoroscopy of Left Heart using Low Osmolar Contrast (ICD-10-PCS; principal; 2018-07-13)
PROC: 027034Z Dilation of Coronary Artery, One Artery with Drug-eluting Intraluminal Device, Percutaneous Approach (ICD-10-PCS; principal; 2018-07-13)
DX: I21.19 ST elevation (STEMI) myocardial infarction involving other coronary artery of inferior wall (principal); I25.10 Atherosclerotic heart disease of native coronary artery without angina pectoris; E11.65 Type 2 diabetes mellitus with hyperglycemia; I10 Essential (primary) hypertension; E78.5 Hyperlipidemia, unspecified; E66.9 Obesity, unspecified; Z68.29 Body mass index [BMI] 29.0-29.9, adult; M48.00 Spinal stenosis, site unspecified
CPT/HCPCS: 84484-PO; C1725; C1760; C1769; C1874; C1887; C9606; J0153; J0583; J1644; J1815; J2250; J2270; J3010; Q9967